=== PATIENT | male | born 2000 | race African-American/Black ===

== ENCOUNTER 2021-08-03 10:20 | Emergency (ER) | payer MEDICAID ==
[~2021-08-03] VITALS: Ht 180.3 cm; Wt 73.0 kg
[2021-08-03] MEDS ORDERED: KETOROLAC 30MG/ML VIAL IM ONE (11:15)
[2021-08-03] MEDS ORDERED: MORPHINE SULFATE 4 MG/ML CPJ (NOT FOR IM USE) IV STA (12:03)
[2021-08-03 12:35] VITALS: BP 112/76
[2021-08-03 12:45] LABS: CHLORIDE 110 mEq/L (98-107)
[2021-08-03 12:48] LABS: BASOPHILS % 0.1 % (0.0-2.0); EOSINOPHILS % 0.3 % (0.0-5.0); HEMATOCRIT. 42.1 % (42.0-52.0); HEMOGLOBIN. 13.8 g/dL (14.0-18.0); LYMPHOCYTES % 7.5 % (20.0-50.0); MEAN CORPUSCULAR HEMOGLOBIN 30.2 pg (28.0-32.0); MEAN CORPUSCULAR VOLUME 92.2 fL (80.0-94.0); MEAN PLATELET VOLUME 7.8 fl (7.4-10.4); MONOCYTES % 3.8 % (2.0-8.0); NEUTROPHILS % 88.3 % (40.0-76.0); PLATELET 240 x1000/uL (130-400); RED BLOOD CELL COUNT 4.57 mill/uL (4.7-6.1)
[2021-08-03 12:50] LABS: ETHANOL BLOOD < 10 mg/dL
== END 2021-08-03 12:58 | disposition short-term general hospital (02) ==
LOC: ER 12:39
DX: S12.400A Unspecified displaced fracture of fifth cervical vertebra, initial encounter for closed fracture (principal); V49.9XXA Car occupant (driver) (passenger) injured in unspecified traffic accident, initial encounter; Y93.89 Activity, other specified; Y92.89 Other specified places as the place of occurrence of the external cause; Y99.8 Other external cause status
CPT/HCPCS: 36415; 72125; 80053; 80320; 83690; 83880; 84484; 85025; 86850; 86900; 86901; 96372; 99291; J1885; Z7610; G0480